=== PATIENT | male | born 1970 | race Caucasian/White ===

== ENCOUNTER 2025-03-04 10:15 | Inpatient (IN) | payer OTHER ==
[~2025-03-04] VITALS: Ht 165.1 cm; Wt 110.0 kg
[2025-03-04] MEDS: SODIUM CHLORIDE 0.9% 2,000 ML IV ONE (11:34)
[2025-03-04 11:43] LABS: CALCIUM, TOTAL 9.2 mg/dL (8.8-10.5); CREATININE 1.35 mg/dL (0.60-1.30); GLOMERULAR FILTR. RATE CALC 55 mL/min (>60); GLUCOSE,RANDOM 365 mg/dL (70-110); PLATELET COUNT (AUTO) 170 K/uL (150-450); RED BLOOD CELL COUNT(AUTO) 5.12 MIL/uL (4.50-5.90); RED CELL DISTRIBUTION WIDTH 14.3 % (11.5-14.5); SODIUM SERUM 131 mmol/L (136-145); UREA NITROGEN, BLOOD 21 mg/dL (7-18); WHITE BLOOD COUNT (AUTO) 8.8 K/uL (4.5-11.0)
[2025-03-04 11:53] LABS: TROPONIN I-HIGH SENSITIVITY 102 ng/L (<76)
[2025-03-04] MEDS: INSULIN REGULAR, HUMAN 100 UNITS/ML IVP ONE (13:53)
[2025-03-04] MEDS: NITROGLYCERIN 2% (1 GM=INCH) OINTMENT PACKET TP ONE (13:54)
[2025-03-04] MEDS: ASPIRIN 325 MG TABLET PO ONE (13:54)
[2025-03-04 15:16] LABS: GLUCOMETER DEV NAME(LOC) ERT.7; GLUCOSE,POINT OF CARE 210 MG/DL (70-110)
[2025-03-04] MEDS ORDERED: HYDROCODONE/ACETAMINOPHEN 5-325 MG TABLET PO PRN (15:45)
[2025-03-04] MEDS ORDERED: ACETAMINOPHEN 325 MG TABLET PO PRN (15:45)
[2025-03-04] MEDS ORDERED: ZOLPIDEM TARTRATE 5 MG TABLET PO PRN (15:45)
[2025-03-04] MEDS ORDERED: BISACODYL 10 MG RECTAL RECTAL SUPPOSITORY PR PRN (15:45)
[2025-03-04] MEDS ORDERED: MAGNESIUM HYDROXIDE SUSPENSION 30 ML UDCUP PO PRN (15:45)
[2025-03-04] MEDS ORDERED: ONDANSETRON HCL 4 MG/2 ML VIAL IVP PRN (15:45)
[2025-03-04] MEDS ORDERED: MORPHINE SULFATE 2 MG/ML SYRINGE IVP PRN (15:45)
[2025-03-04 16:40] VITALS: BP 150/88; PULSE 78; RESP 18; TEMP 97.9; O2SAT 98
[2025-03-04] MEDS: HEPARIN SODIUM,PORCINE 5,000 UNITS/ML VIAL SQ SCH (16:50)
[2025-03-04] MEDS ORDERED: DEXTROSE 50%-WATER 25 GM/50 ML SYRINGE IVP PRN (19:30)
[2025-03-04 20:00] VITALS: BP 126/69; PULSE 68; RESP 17; TEMP 97.8; O2SAT 98
[2025-03-04] MEDS: DOCUSATE SODIUM 100 MG CAPSULE PO SCH (20:38)
[2025-03-04] MEDS: INSULIN LISPRO 100 UNITS/ML SQ PRN (20:39)
[2025-03-04] MEDS: INSULIN GLARGINE,HUM.REC.ANLOG 100 UNITS/ML SQ SCH (20:40)
[2025-03-04 21:16] LABS: GLUCOMETER DEV NAME(LOC) 5N.2C; GLUCOSE,POINT OF CARE 241 MG/DL (70-110)
[2025-03-05] VITALS: BP 145/65; PULSE 65; RESP 17; TEMP 98; O2SAT 98
[2025-03-05 04:00] VITALS: BP 153/86; PULSE 67; RESP 18; TEMP 97.8; O2SAT 97
[2025-03-05 06:40] LABS: GLUCOMETER DEV NAME(LOC) 5S.2D; GLUCOSE,POINT OF CARE 231 MG/DL (70-110)
[2025-03-05 06:45] LABS: PLATELET COUNT (AUTO) 170 K/uL (150-450); RED BLOOD CELL COUNT(AUTO) 4.85 MIL/uL (4.50-5.90); RED CELL DISTRIBUTION WIDTH 14.2 % (11.5-14.5); WHITE BLOOD COUNT (AUTO) 5.6 K/uL (4.5-11.0)
[2025-03-05 06:57] LABS: CALCIUM, TOTAL 8.0 mg/dL (8.8-10.5); CREATININE 1.09 mg/dL (0.60-1.30); GLOMERULAR FILTR. RATE CALC > 60 mL/min (>60); GLUCOSE,RANDOM 232 mg/dL (70-110); SODIUM SERUM 133 mmol/L (136-145); UREA NITROGEN, BLOOD 20 mg/dL (7-18)
[2025-03-05 07:24] LABS: TROPONIN I-HIGH SENSITIVITY 98 ng/L (<76)
[2025-03-05] MEDS: PANTOPRAZOLE SODIUM 40 MG DR TABLET PO SCH (09:04)
[2025-03-05 10:45] VITALS: BP 152/84; PULSE 81; RESP 18; O2SAT 98
[2025-03-05 15:05] VITALS: BP 136/73; PULSE 85; RESP 17; TEMP 98.2; O2SAT 98
[2025-03-05 20:00] VITALS: BP 149/89; PULSE 79; RESP 18; TEMP 98.2; O2SAT 96
[2025-03-06 00:19] VITALS: BP 166/90; PULSE 75; RESP 20; TEMP 98.2; O2SAT 100
[2025-03-06 02:46] LABS: GLUCOMETER DEV NAME(LOC) 5N.2C; GLUCOSE,POINT OF CARE 338 MG/DL (70-110)
[2025-03-06 02:46] LABS: GLUCOMETER DEV NAME(LOC) 5N.2C; GLUCOSE,POINT OF CARE 330 MG/DL (70-110)
[2025-03-06 02:46] LABS: GLUCOMETER DEV NAME(LOC) 5N.2C; GLUCOSE,POINT OF CARE 279 MG/DL (70-110)
[2025-03-06 05:35] VITALS: BP 167/74; PULSE 74; RESP 20; TEMP 97.9; O2SAT 100
[2025-03-06 06:18] LABS: PLATELET COUNT (AUTO) 156 K/uL (150-450); RED BLOOD CELL COUNT(AUTO) 4.94 MIL/uL (4.50-5.90); RED CELL DISTRIBUTION WIDTH 14.1 % (11.5-14.5); WHITE BLOOD COUNT (AUTO) 5.1 K/uL (4.5-11.0)
[2025-03-06 06:39] LABS: CALCIUM, TOTAL 8.6 mg/dL (8.8-10.5); CREATININE 0.96 mg/dL (0.60-1.30); GLOMERULAR FILTR. RATE CALC > 60 mL/min (>60); GLUCOSE,RANDOM 235 mg/dL (70-110); SODIUM SERUM 134 mmol/L (136-145); UREA NITROGEN, BLOOD 17 mg/dL (7-18)
[2025-03-06 08:00] VITALS: BP 169/96; PULSE 78; RESP 16; TEMP 97.8; O2SAT 99
[2025-03-06 11:40] LABS: GLUCOMETER DEV NAME(LOC) 5S.2D; GLUCOSE,POINT OF CARE 239 MG/DL (70-110)
[2025-03-06 12:00] VITALS: BP 158/81; PULSE 72; RESP 16; TEMP 97.6; O2SAT 99
[2025-03-06] MEDS ORDERED: MORPHINE SULFATE 4 MG/ML VIAL IVP PRN (14:30)
[2025-03-06 14:41] LABS: GLUCOMETER DEV NAME(LOC) 5N.2C; GLUCOSE,POINT OF CARE 319 MG/DL (70-110)
[2025-03-06 16:00] VITALS: BP 145/78; PULSE 81; RESP 16; TEMP 97.8; O2SAT 96
== END 2025-03-06 11:55 | DRG 305 ==
LOC: EMS 10:21 → EDH 13:30 → 5N 16:35
PROVIDERS: ADMIT Internal Medicine; ATTEND Internal Medicine
DX: I16.0 Hypertensive urgency (principal); E11.65 Type 2 diabetes mellitus with hyperglycemia; E11.22 Type 2 diabetes mellitus with diabetic chronic kidney disease; I12.9 Hypertensive chronic kidney disease with stage 1 through stage 4 chronic kidney disease, or unspecified chronic kidney disease; N18.9 Chronic kidney disease, unspecified; Z79.4 Long term (current) use of insulin; Z79.899 Other long term (current) drug therapy; Z91.148 Patient's other noncompliance with medication regimen for other reason
CPT/HCPCS: 71045; 80048; 82009; 82962; 83036; 84484; 85025; 93005; 93306; 96360; 99291; J0360; J1644; J1815; 36415-L1; 36415-TC